=== PATIENT | female | born 1935 | race Caucasian/White ===

== ENCOUNTER 2017-09-17 11:09 | Inpatient (IN) | payer OTHER ==
[~2017-09-17] VITALS: Ht 152.4 cm; Wt 109.8 kg
--- NOTE | ~2017-09-17 | EKG ---
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
[2017-09-17 11:18] VITALS: BP 162/70
[2017-09-17] MEDS ORDERED: NOVOLOG100 UNIT/1 SUBQ (11:40)
[2017-09-17] MEDS ORDERED: LEVEMIR SUBQ (11:40)
[2017-09-17] MEDS ORDERED: NORVASC5 MG PO (11:40)
[2017-09-17] MEDS ORDERED: BUMETANIDE0.25 MG/1 PO (11:41)
[2017-09-17] MEDS ORDERED: AMARYL2 MG PO (11:41)
[2017-09-17] MEDS ORDERED: ALLOPURINOL 10100 M1 PO (11:41)
[2017-09-17] MEDS ORDERED: ZOCOR20 MG PO (11:42)
[2017-09-17] MEDS ORDERED: LOPRESSOR50 PO (11:42)
[2017-09-17] MEDS ORDERED: LISINOPRIL20 MG PO (11:42)
[2017-09-17] MEDS ORDERED: FLONASE 0.05%50 MCG NASAL (11:43)
[2017-09-17] MEDS ORDERED: FOSAMAX 70 MG T70 MG PO (11:43)
[2017-09-17 12:03] LABS: ABSOLUTE BASOPHILS 0.1 thou/uL (0.0-0.2); ABSOLUTE LYMPHOCYTES 1.3 thou/uL (0.8-5.3); ABSOLUTE MONOCYTES 0.5 thou/uL (0.0-1.2); ABSOLUTE NEUTROPHILS 6.2 thou/uL (1.6-8.1); BASOPHILS 0.9 %; EOSINOPHILS 0.6 %; HEMOGLOBIN 12.4 gm/dL (12.0-15.0); LYMPHOCYTES 16.2 %; MCH 29.8 pg (26.0-34.0); MCHC 32.6 g/dL (28.0-37.0); MCV 91.4 fL (80.0-100.0); MONOCYTES 6.5 %; MPV 8.5 fl. (7.2-11.1); NUCLEATED RBCS 0 /100WBC; PLATELET COUNT* 168 thou/uL (150-400); POLYS 75.8 %; RBC 4.16 mil/uL (4.20-5.00); WBC 8.2 thou/uL (4.0-11.0)
[2017-09-17 12:16] LABS: APTT 28.7 Seconds (25.0-31.3); INR 1.1; PROTIME 10.6 Seconds (9.20-11.50)
[2017-09-17 12:21] LABS: ANION GAP 8 mmol/L (7-16); BUN 44 mg/dL (7-18); CALCIUM 9.6 mg/dL (8.5-10.1); CHLORIDE 106 mmol/L (98-107); CO2 26 mmol/L (21-32); CREATININE 1.4 mg/dL (0.6-1.3); GLUCOSE 168 mg/dL (70-99); POTASSIUM 4.9 mmol/L (3.5-5.1); SODIUM 140 mmol/L (136-145)
[2017-09-17 12:29] LABS: ALBUMIN 3.5 g/dL (3.4-5.0); ALKALINE PHOSPHATASE 43 U/L (46-116); CK-MB MASS 1.2 ng/mL (<0.5-3.6); LIPASE 129 U/L (73-393); MAGNESIUM 1.9 mg/dL (1.8-2.4); NT-PRO BRAIN NAT PEPTIDE 984 pg/mL (<300); SGOT 13 U/L (15-37); SGPT 19 U/L (30-65); TOTAL BILIRUBIN 0.6 mg/dL (<0.1-1.0); TOTAL PROTEIN 6.5 g/dL (6.4-8.2); TROPONIN-I LEVEL <0.06 ng/mL (<0.06)
[2017-09-17 13:26] VITALS: BP 132/59
[2017-09-17 15:00] VITALS: BP 142/63
--- NOTE | 2017-09-17 16:41 | EKG ---
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 : 1935 Requested By: Jeffry Ariza Order Number: [id number] MD: Samm Avilez Measurements Intervals [place] Rate: 105 P: [place]: QRS: -31 QRSD: 79 T: 40 QT: 305 QTc: 404 Interpretive Statements Atrial fibrillation Inferior infarct, old Anterior infarct, old Compared to ECG 11/16/2006 10:31:31 Sinus rhythm no longer present Myocardial infarct finding still present Electronically Signed On 09-17-2017 16:41:13 CDT by Samm Avilez [email or web address] <ELECTRONICALLY SIGNED> By: Samm Avilez MD, FACC 09/17/17 1641 1121 1121 Samm Avilez MD, [facility] /EPI
[2017-09-17 20:00] VITALS: BP 122/63
[2017-09-18] VITALS (7 sets, daily range): BP systolic 116–125; BP diastolic 45–70
[2017-09-18 05:28] LABS: ANION GAP 8 mmol/L (7-16); BUN 37 mg/dL (7-18); CALCIUM 9.2 mg/dL (8.5-10.1); CHLORIDE 106 mmol/L (98-107); CO2 27 mmol/L (21-32); CREATININE 1.2 mg/dL (0.6-1.3); GLUCOSE 95 mg/dL (70-99); POTASSIUM 4.6 mmol/L (3.5-5.1); SODIUM 141 mmol/L (136-145)
[2017-09-18 05:50] LABS: CHOLESTEROL 139 mg/dL (<200); HDL CHOLESTEROL 52 mg/dL (>40); LDL CHOLESTEROL 68 mg/dL (<100); TC:HDL 2.7 Ratio (Not establshd); TRIGLYCERIDE 95 mg/dL (<150); VLDL 19 mg/dL (<40)
[2017-09-18 05:59] LABS: SERUM ASSESSMENT Clear
[2017-09-18 06:04] LABS: ABSOLUTE BASOPHILS 0.1 thou/uL (0.0-0.2); ABSOLUTE EOSINOPHILS 0.2 thou/uL (0.0-0.7); ABSOLUTE LYMPHOCYTES 1.9 thou/uL (0.8-5.3); ABSOLUTE MONOCYTES 0.7 thou/uL (0.0-1.2); ABSOLUTE NEUTROPHILS 6.2 thou/uL (1.6-8.1); BASOPHILS 0.6 %; EOSINOPHILS 1.8 %; HEMATOCRIT 34.4 % (37.0-47.0); HEMOGLOBIN 11.4 gm/dL (12.0-15.0); LYMPHOCYTES 20.7 %; MCV 90.9 fL (80.0-100.0); MONOCYTES 7.9 %; MPV 8.7 fl. (7.2-11.1); NUCLEATED RBCS 0 /100WBC; PLATELET COUNT* 174 thou/uL (150-400); RBC 3.79 mil/uL (4.20-5.00); RDW-CV 14.8 % (10.5-14.5)
--- NOTE | 2017-09-18 08:10 | CON ---
[facility] [address] [place] [address] CONSULTATION Name: THEODORE KRAUSE Room: [address] IN .R.#: [id number] Admission: 09/17/17 Attend Phys: Ross Mccullough MD Discharge: Date of : 37 Report #: [id number] THIS REPORT FOR: //name// CC: Ross Dao MD DATE OF SERVICE: 09/17/2017 INDICATION: New onset atrial fibrillation. HISTORY OF PRESENT ILLNESS: The patient is a very pleasant 82-year-old white female with no prior cardiac history. Cardiac risk factors include diabetes and hypertension. The patient was seen at her primary physician's office to receive a report on her lab results. She was without complaint. Her doctor noted her heart rhythm to be irregular. An EKG showed atrial fibrillation with a relatively controlled ventricular response rate. The patient was instructed to proceed to the hospital. She was admitted through the Emergency Room with new onset atrial fibrillation. She remains asymptomatic. She is not having any significant chest pain or shortness of breath. PAST MEDICAL HISTORY: 1. Hypertension. 2. Type 2 diabetes mellitus, insulin requiring. 3. Stage 3 chronic renal insufficiency. 4. Diabetic retinopathy. 5. Hyperlipidemia. 6. Irritable bowel syndrome. 7. DJD. PAST SURGICAL HISTORY: 1. Hysterectomy. 2. Bilateral salpingectomy. 3. Left ovarian resection. 4. Left knee replacement. 5. Left shoulder repair. SOCIAL HISTORY: The patient does not smoke. She does not drink alcohol. She is . She lives in [place]. FAMILY HISTORY: Noncontributory. REVIEW OF SYSTEMS: A 14-point review of systems is positive for decreased hearing. She wears glasses without acute visual loss. 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 She reports a nonproductive cough. Otherwise, 14-point review [place] [address] CONSULTATION Name: THEODORE KRAUSE Marjorie Room: [address]#: [id number] Admission: 09/17/17 Attend Phys: Ross Mccullough MD Discharge: Date of : 37 Report #: [id number] PHYSICAL EXAMINATION: VITAL SIGNS: Stable. Blood pressure 142/63, pulse is in the 80s and irregular. GENERAL: This is a pleasant elderly female in no distress. Mood and affect appropriate. HEENT: The patient is wearing glasses. Extraocular muscles intact. O2 nasal cannula in place. NECK: Shows no jugular venous distention. No carotid bruits. CHEST: Reveals clear lung [place] without wheezes, rales or rhonchi. CARDIOVASCULAR: Reveals an irregularly irregular rhythm without gallop or murmur. ABDOMEN: Reveals normal bowel sounds. The abdomen is soft, nontender. EXTREMITIES: Shows no edema. There are some varicosities. SKIN: Warm and dry. A 12-lead EKG shows atrial fibrillation without significant ST-segment abnormality. There are Q-waves inferiorly in anteroseptal leads. LABORATORY DATA: Outside labs reviewed. BUN and creatinine slightly elevated. The remainder of labs appear unremarkable. Chest x-ray obtained and results pending. IMPRESSION AND RECOMMENDATIONS: 1. New onset atrial fibrillation, duration unknown. We will start Xarelto 20 mg daily and sotalol 80 mg twice daily in an effort to cardiovert. We will obtain echocardiogram and thyroid function studies. 2. Hypertension. Blood pressure adequately controlled. We will be discontinuing metoprolol in favor of sotalol. Continue other home medications per chart. 3. Diabetes. Treatment per primary physician. 4. Hyperlipidemia. Continue simvastatin at current dose. <ELECTRONICALLY SIGNED> By: Samm Avilez MD, FACC 09/18/17 0810 1538 1849Micalejandrina Avilez MD, FACC /nt
--- NOTE | 2017-09-18 11:41 | EKG ---
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 : 1935 Requested By: Jeffry Ariza Order Number: [id number] Ellis MD: Fausto Francois Measurements Intervals [place] Rate: 82 P: CT: QRS: -30 QRSD: 81 T: 44 QT: 360 QTc: 421 Interpretive Statements Atrial fibrillation Inferior infarct, old Anterior infarct, old Compared to ECG 09/17/2017 11:21:23 No significant changes Electronically Signed On 09-18-2017 11:40:44 CDT by Fausto Francois [email or web address] <ELECTRONICALLY SIGNED> By: Fausto Francois MD, [facility] 09/18/17 1140 2257 2257 Fausto Francois MD, [facility] /EPI
--- NOTE | 2017-09-18 11:46 | EKG ---
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: : 1935 Requested By: Samm Avilez Order Number: [id number] Reading MD: Fausto Francois Measurements Intervals [place] Rate: 69 P: -25 DE: 218 QRS: -25 QRSD: 84 T: 41 QT: 393 QTc: 421 Interpretive Statements Sinus rhythm Borderline prolonged [place] interval Inferior infarct, old Anterior infarct, old Compared to ECG 09/17/2017 11:21:23 Atrial fibrillation no longer present Myocardial infarct finding still present Electronically Signed On 09-18-2017 11:45:49 CDT by Fausto Francois [email or web address] <ELECTRONICALLY SIGNED> By: Fausto Francois MD, [facility] 09/18/17 1145 0838 0838 Fausto Francois MD, [facility] /EPI
[2017-09-19] VITALS: BP 136/85
[2017-09-19 04:00] VITALS: BP 104/53
[2017-09-19 05:16] LABS: ABSOLUTE BASOPHILS 0.1 thou/uL (0.0-0.2); ABSOLUTE EOSINOPHILS 0.2 thou/uL (0.0-0.7); ABSOLUTE LYMPHOCYTES 1.6 thou/uL (0.8-5.3); ABSOLUTE MONOCYTES 0.8 thou/uL (0.0-1.2); ABSOLUTE NEUTROPHILS 7.5 thou/uL (1.6-8.1); BASOPHILS 0.6 %; EOSINOPHILS 1.6 %; HEMATOCRIT 36.8 % (37.0-47.0); HEMOGLOBIN 12.2 gm/dL (12.0-15.0); LYMPHOCYTES 15.9 %; MCH 30.1 pg (26.0-34.0); MCHC 33.1 g/dL (28.0-37.0); MONOCYTES 7.9 %; MPV 8.8 fl. (7.2-11.1); NUCLEATED RBCS 0 /100WBC; PLATELET COUNT* 174 thou/uL (150-400); RBC 4.04 mil/uL (4.20-5.00); WBC 10.2 thou/uL (4.0-11.0)
[2017-09-19 05:36] LABS: ALBUMIN 3.5 g/dL (3.4-5.0); CREATININE 1.6 mg/dL (0.6-1.3); TOTAL BILIRUBIN 0.5 mg/dL (<0.1-1.0)
[2017-09-19 09:00] VITALS: BP 130/71
[2017-09-19 11:30] VITALS: BP 160/77
--- NOTE | 2017-09-19 12:26 | EKG ---
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: ABHISHEK : 1935 Requested By: Samm Avilez Order Number: [id number] Reading MD: Gerry Ho Measurements Intervals [place] Rate: 69 P: -22 [place]: 219 QRS: -19 QRSD: 87 T: 25 QT: 409 QTc: 438 Interpretive Statements Sinus rhythm Borderline prolonged [place] interval Inferior infarct, old Probable anteroseptal infarct, old Compared to ECG 09/18/2017 08:38:34 No significant changes Electronically Signed On 09-19-2017 12:26:24 CDT by Gerry Ho [email or web address] <ELECTRONICALLY SIGNED> By: Gerry Ho MD, FAC 09/19/17 1226 0749 0749 Gerry Ho MD, [facility] /EPI
[2017-09-19 12:29] VITALS: BP 105/50
[2017-09-19] MEDS ORDERED: XARELTO20 MG PO (16:29)
[2017-09-19] MEDS ORDERED: SOTALOL80 MG PO (16:30)
[2017-09-19 16:31] VITALS: BP 121/63
== END 2017-09-19 17:41 | disposition home or self-care (01) | DRG 682 ==
LOC: M.ERS 11:09 → M.TBA-ER 12:19 → M.2W 12:19
PROVIDERS: Family Medicine; ADMIT Internal Medicine
DX: N17.9 Acute kidney failure, unspecified (principal); I50.31 Acute diastolic (congestive) heart failure; I13.0 Hypertensive heart and chronic kidney disease with heart failure and stage 1 through stage 4 chronic kidney disease, or unspecified chronic kidney disease; I48.91 Unspecified atrial fibrillation; M19.90 Unspecified osteoarthritis, unspecified site; E78.00 Pure hypercholesterolemia, unspecified; E11.22 Type 2 diabetes mellitus with diabetic chronic kidney disease; E78.5 Hyperlipidemia, unspecified; N18.3 Chronic kidney disease, stage 3 (moderate); E11.319 Type 2 diabetes mellitus with unspecified diabetic retinopathy without macular edema; K58.9 Irritable bowel syndrome, unspecified; Z90.710 Acquired absence of both cervix and uterus; Z79.84 Long term (current) use of oral hypoglycemic drugs; Z88.0 Allergy status to penicillin; Z79.4 Long term (current) use of insulin

== ENCOUNTER → 2017-10-13 | Outpatient (CLI) | payer OTHER ==
[~2017-10-13] MED LIST: ALLOPURINOL 10100 M1 PO; AMARYL2 MG PO; BUMETANIDE0.25 MG/1 PO; FLONASE 0.05%50 MCG NASAL; FOSAMAX 70 MG T70 MG PO; LEVEMIR SUBQ; LISINOPRIL20 MG PO; LOPRESSOR50 PO; NORVASC5 MG PO; NOVOLOG100 UNIT/1 SUBQ; SOTALOL80 MG PO; XARELTO20 MG PO; ZOCOR20 MG PO
--- NOTE | 2017-10-13 15:02 | 2DMMODE ---
[place] [address] 2 D/M-MODE ECHOCARDIOGRAM Name: THEODORE KRAUSE Room: [facility]#: [id number] Admission: 10/13/17 Attend Phys: Cailin Serrano, Discharge: Date of : 37 Date of Service: 10/13/17 1501 Report #: [id number] THIS REPORT FOR: //name// APPROVED REPORT Study performed: 10/13/2017 13:03:06 EXAM: Comprehensive 2D, Doppler, and color-flow Echocardiogram Patient Location: Out-Patient Status: routine BSA: 2.13 HR: 78 bpm Other Information Study Quality: Good Indications Atrial Fibrillation 2D Dimensions LVEF(%): 72.69 (>50%) IVSd: 13.56 (7-11mm) LVOT Diam: 19.91 (18-24mm) LVDd: 46.03 mm PWd: 12.49 (7-11mm) Ascending Ao: 34.07 (22-36mm) LVDs: 26.84 (25-40mm) Aortic Root: 27.54 mm Shea's LVEF: 72.69 % Volumes Left Atrial Volume (Systole) LA ESV Index: 21.10 mL/m2 Aortic Valve AoV Peak Pa.: 1.28 m/s AO Peak Gr.: 6.59 mmHg LVOT Max P.79 mmHg AO Mean Gr.: 4.20 mmHg LVOT Mean P.09 mmHg LVOT Max V: 0.97 m/s AO V2 VTI: 32.51 cm LVOT Mean V: 0.67 m/s JULISSA (VTI): 2.49 cm2 LVOT V1 VTI: 25.96 cm Mitral Valve E/A Ratio: 0.81 MV Decel. Time: 182.33 [place] [address] 2 D/M-MODE ECHOCARDIOGRAM Name: THEODORE KRAUSE Room: [facility]#: [id number] Admission: 10/13/17 Attend Phys: Cailin Serrano, Discharge: Date of : 37 Date of Service: 10/13/17 1501 Report #: [id number] MV E Max Pa.: 0.76 m/s MV PHT: 52.88 ms MVA (PHT): 4.16 cm2 TDI E/Lateral E': 8.44 E/Medial E': 5.85 Medial E' Pa.: 0.13 m/s Lateral E' Pa.: 0.09 m/s Pulmonary Valve PV Peak Pa.: 0.84 m/s PV Peak Gr.: 2.84 mmHg Tricuspid Valve TR Peak Gr.: 27.96 mmHg RVSP: 32.96 mmHg Left Ventricle The left ventricle is normal size. There is normal LV segmental wall motion. Mild concentric left ventricular hypertrophy. Left ventricular systolic function is normal. LVEF is 60-65%. Transmitral Doppler flow pattern suggests impaired LV relaxation. Right Ventricle The right ventricle is normal size. The right ventricular systolic function is normal. Atria The left atrium size is normal. The right atrium size is normal. Aortic Valve The aortic valve is normal in structure. No aortic regurgitation is present. There is no aortic valvular stenosis. Mitral Valve There is mild mitral annular calcification. Mild mitral regurgitation. No evidence of mitral valve stenosis. Tricuspid Valve The tricuspid valve is normal in structure. Mild tricuspid regurgitation. The RVSP is __33 mmHg. Pulmonic Valve The pulmonary valve is normal in structure. Mild pulmonic regurgitation[place] [address] 2 D/M-MODE ECHOCARDIOGRAM Name: NELIDATHEODORE Room: [facility]#: [id number] Admission: 10/13/17 Attend Phys: Cailin Serrano, Discharge: Date of : 37 Date of Service: 10/13/17 1501 Report #: [id number] The aortic root is normal in size. IVC is normal in size and collapses with >50% inspiration Pericardium There is no pericardial effusion. <Conclusion> The left ventricle is normal size. Mild concentric left ventricular hypertrophy. LVEF is 60-65%. Transmitral Doppler flow pattern suggests impaired LV relaxation. Left ventricular systolic function is normal. There is mild mitral annular calcification. Mild mitral regurgitation. Mild tricuspid regurgitation. The RVSP is __33 mmHg. Mild pulmonic regurgitation. <ELECTRONICALLY SIGNED> By: Samm Avilez MD, FACC 10/13/17 1501 150 150 Samm Avilez MD, FACC /INF
== END ==
LOC: M.CRD 12:47
DX: I08.1 Rheumatic disorders of both mitral and tricuspid valves (principal); I48.0 Paroxysmal atrial fibrillation